=== PATIENT | male | born 1970 | race American Indian/Alaskan Native ===

== ENCOUNTER 2022-07-19 09:56 | Inpatient (IN) | payer OTHER ==
[~2022-07-19] VITALS: Ht 185.4 cm; Wt 86.0 kg
[~2022-07-19 09:56] MED LIST: ASPIRIN EC81 MG PO; JANUVIA100 MG PO; LIPITOR40 MG PO; NORCO 5-325 TA1 EACH PO; NOVOLOG FL100 UNIT/1 SUB-Q; SEMGLEE (Y100 UNIT/2 SUB-Q
[2022-07-19] MEDS ORDERED: OZEMPIC1 MG/0.71 SUB-Q (10:26)
--- NOTE | 2022-07-19 13:55 | NUR ---
REPORT RECIEVED FROM CURVE CLEANER, CARE OF PT ASSUMED AT THIS TIME. PT ARRIVED VIA STRETCHER ON REFRACTORY REPAIRER. TRANSPORTED BY [employer] DEVELOPER. PT ALERT AND ORIENTED UPON ARRIVAL. ABLE TO SELF TRANSFER FROM STRETCHER TO BED.
--- NOTE | 2022-07-19 14:20 | NUR ---
INITIAL ASSESSMENT COMPLETE. PT ALERT AND ORIENTED, ANSWERING ALL QUESTIONS APPROPRIATELY. LUNGS SOUND CLEAR IN THE UPPER IARWAYS, DIMINISHED IN BILATERAL LUNG BASES. PT DENIES SHORTNESS OF BREATH. SPO2 = 95% ON ROOM AIR. PT IN AFIB WITH RVR, HEART RATE BETWEEN 110-130 BPM AT REST. PT HAS BILATERAL LOWER LEG EDEMA. PT STATES HE NOTICED THE SWELLING DEVELOPING IN THE LAST TWO WEEKS. PULSE STRONG IN A DISTAL EXTREMITIES. BOWEL TONES ACTIVE. PLAN OF CARE DISCUSSED WITH PT. ALL QUESTIONS ANSWERED. IV LASIX AND ORAL LOPRESSOR ADMINISTERED. IV MAGNESIUM NOW INFUSING. CALL LIGHT WITHIN REACH. WILL CONTINUE TO CLOSELY MONITOR.
--- NOTE | 2022-07-19 15:20 | EKG ---
[facility] [address] [place], [place] [address] Signed Atrial fibrillation with rapid ventricular response Nonspecific T wave abnormality Abnormal ECG No previous ECGs available Confirmed by NO ZHENG MD ([id number]) on 07/19/2022 3:20:52 PM Electronically Signed By: NO ZHENG MD 07/19/22 1520 PATIENT NAME: RICH WILSON Electrocardiogram DATE OF : 74 PHYSICIAN: NO ZHENG MD REPORT #: [id number] REPORT IS CONFIDENTIAL AND NOT TO BE RELEASED WITHOUT AUTHORIZATION
--- NOTE | 2022-07-19 15:28 | NUR ---
PT UP AT SIDE OF BED TO VOID. HEART RATE UP INTO THE 170S WITH MINIMAL ACTIVITY. DR ZHENG UPDATED. TELEPHONE ORDER FOR 5 MG IV LOPRESSOR RECEIVED. FIVE MINUTES AFTER ADMINISTRATION. HEART RATE BACK INTOT HE 120S. IN A ATRIAL FIBRILLATION RHYTHM. PT DENIES CHEST PAIN, SHORTNESS OF BREATH, OR DISCOMFORT. WILL CONTINUE TO MONITOR.
--- NOTE | 2022-07-19 17:22 | NUR ---
ASSESSMENT COMPLETED. INSULIN HELD FOR BLOOD SUGAR IN RANGE. PT NOW SITTING AT BEDSIDE TO VOID. HEART UP TO 160 WITH ACTIVITY. PT NOW EATING DINNER. HEART RATE STILL BETWEEN 140-160
--- NOTE | 2022-07-19 17:29 | NUR ---
DR ZHENG UPDATED ON PT'S HEART RATE WITH ACTIVITY. PLAN TO WATCH PT FOR THE NEXT 20 MINUTES.
--- NOTE | 2022-07-19 18:29 | NUR ---
PT RESTING HEART RATE IN THE 130S, ELEVATES TO THE 150S WITH MINOR ACTIVITY SUCH TALKING ON THE PHONE, EATING OR MOVING IN BED.
--- NOTE | 2022-07-19 19:37 | NUR ---
PT ASSESSMENT AND MEDICATION ADMINISTRATION COMPLETED. PT IS A/O, RESPIRATIONS EVEN AND REGULAR. RATES PAIN 0/10. MANUAL BP 112/72 HR IRREGULAR 135-154. PT DENIES NEEDS/COMPLAINTS ATT. CALL LIGHT WITHIN REACH.
--- NOTE | 2022-07-19 20:30 | NUR ---
MD NOTIFIED/UPDATED ON PT HR AND VS. VERBAL GIVEN TO CONTINUE TO MONITOR FOR ONE MORE HOUR AND UPDATE MD AT THAT TIME.
--- NOTE | 2022-07-19 21:05 | NUR ---
ROUNDED ON PT. PT IS A/O, SITTING UP IN BED, RESPIRATIONS EVEN AND REGULAR. INSULIN ADMINISTERED FOR BG 183. PT DENIES COMPLAINTS OR NEEDS ATT. CALL LIGHT WITHIN REACH.
--- NOTE | 2022-07-19 21:33 | NUR ---
UPDATED ON PT HR. VERBALIZED THAT HE WILL MAKE MEDICATION CHAGES.
--- NOTE | 2022-07-19 21:47 | NUR ---
TO PT ROOM FOR MEDICATION ADMINISTRATION. PT IS A/O, RESPIRATIONS EVEN AND REGULAR HR 140-150. CALL LIGHT WITHIN REACH.
--- NOTE | 2022-07-19 23:55 | NUR ---
PT ASSESSMENT COMPLETED. PT IS RESTING COMFORTABLY, HR 115-120. DENIES NEEDS OR COMPLAINTS ATT. URNINAL EMPTIED. CALL LIGHT WITHIN REACH.
--- NOTE | 2022-07-20 01:54 | NUR ---
TO PT ROOM FOR MEDICATION ADMINISTRATION. PT APPEARED TO BE SLEEPING COMFORTABLY. EASILY AROUSED FOR MEDIATION. HR 118-125, RESPIRATIONS EVEN AND REGULAR. CALL LIGHT WITHIN REACH.
--- NOTE | 2022-07-20 04:13 | NUR ---
pt assessment completed. pt appears to be sleeping comfortably. HR 99-107, respirations even and regular. call light within reach.
--- NOTE | 2022-07-20 06:02 | NUR ---
rounded on pt. pt appears to be sleeping comfortably. hr 112-117, respirations even and regular. call light within reach.
--- NOTE | 2022-07-20 07:35 | NUR ---
REPORT RECEIVED FROM KINDRA CAT. AR IS RESTING IN BED WITH EYES CLOSED, RESP EVEN AND UNLABORED, HR 110-120'S.
--- NOTE | 2022-07-20 08:39 | NUR ---
PT HAS EATEN ALL HIS BREAKFAST, SITITNG UP IN BED WATCHING TV. ADDITIONAL 25MG METOPROLOL GIVEN TO MAKE A TOTAL OF 100MG GIVEN THIS AM. PT STATES HE IS FEELING MUCH BETTER THAN WHEN HE FIRST CAME IN, REPORTING LESS WHEEZING AND NO LONGER FEELING SOB, REPORTS HE GOT SOME GOOD SLEEP LAST NIGHT AND HAD OCCASIONAL TIMES WHERE HE FELT SOME CHEST PRESSURE, STATES "ITS NOT NEAR MUCH PRESSURE I WAS FEELING YESTERDAY". PLAN FOR THE DAY DISCUSSED, INCLUDING TO CONTINUE CARDIAC MONITORING AND SCHEDULED METOPROLOL AND PT IS AGREEABLE.
--- NOTE | 2022-07-20 08:40 | NUR ---
PATIENT RESTING IN BED, WOKE TO VOICE. VITALS CHARTED. WASHCLOTH PROVIDED FOR FACE AND HANDS. BREAKFAST PROVIDED. HR IN 150'S WITH SMALL ACTIVITY OF REPOSITIONING IN BED FOR BREAKFAST. RN NOTIFIED. CALL LIGHT IN EASY REACH
--- NOTE | 2022-07-20 10:07 | NUR ---
DR ZHENG IN TO SEE PT, PLAN TO START DIGOXIN AND GIVE MORE LASIX.
[2022-07-20] MEDS ORDERED: CIALIS20 MG PO (10:35)
[2022-07-20] MEDS ORDERED: SILDENAFIL20 MG PO (10:36)
[2022-07-20] MEDS ORDERED: NORVASC10 MG PO (10:38)
[2022-07-20] MEDS ORDERED: FISH OIL 1,0001 EAC9 PO (10:38)
[2022-07-20] MEDS ORDERED: ZESTRIL40 MG PO (10:39)
[2022-07-20] MEDS ORDERED: VITAMIN D350 MCG PO (10:40)
[2022-07-20] MEDS ORDERED: WELCHOL625 MG PO (10:41)
[2022-07-20] MEDS ORDERED: METFORMIN HCL500 M3 PO (10:42)
--- NOTE | 2022-07-20 11:34 | NUR ---
VITALS CHARTED. EMORY LEE NOTIFIED OF 99.0 TEMP.
--- NOTE | 2022-07-20 11:45 | NUR ---
LUNCH BROUGHT IN TO PT, ASSESSMENT UNCHANGED FROM PREVIOUS. PT DENIES NEEDS AT THIS TIME, HR A BIT LOWER, 100-120.
--- NOTE | 2022-07-20 12:06 | NUR ---
MED REC COMPLETE
--- NOTE | 2022-07-20 14:00 | NUR ---
PT RESTING IN BED WITH EYES CLOSED, RESP EVEN AND UNLABORED. HR 115'S.
--- NOTE | 2022-07-20 17:12 | NUR ---
DINNER BROUGHT IN TO PT, PT SITTING UP IN BED WATCHING TV WITH RESTING HR 115-120'S. DENIES CHEST PAIN OR PRESSURE.
--- NOTE | 2022-07-20 18:04 | NUR ---
PT STANDING UP AT BEDSIDE TO VOID, HR 150-170 WHILE STANDING. DOWN TO 115'S ONCE HE LAYS BACK DOWN TO WATCH TV. DENIES NEEDS AT THIS TIME.
--- NOTE | 2022-07-20 19:36 | NUR ---
PT ASSESSMENT COMPLETED. PT HR 110-120. DENIES SOB OR CP THIS EVENING. BLE +1 WITH GOOD URINE OUTPUT TODAY. RATES PAIN 0/10. PT IS A/O, RESPIRATIONS EVEN AND REGULAR. CALL LIGHT WITHIN REACH.
--- NOTE | 2022-07-20 21:05 | NUR ---
TO PT ROOM FOR MEDICATION ADMINISTRATION. PT UP TO USE URINAL. DENIES DIZZINESS/SOB WITH AMBULATION. HR ELEVATED TO 170-190 WHILE OOB. DENIES NEEDS/COMPLAINTS ATT. CALL LIGHT WITHIN REACH.
--- NOTE | 2022-07-20 23:30 | NUR ---
rounded on pt. pt appears to be sleeping comfortably. respirations even and regular hr 110-120.
--- NOTE | 2022-07-21 00:06 | NUR ---
PT ASSESSMENT COMPLETED. PT SLEEPING COMFORTABLY. EASILY AROUSED, RESPIRATIONS EVEN AND REGULAR. HR 90-100. CALL LIGHT WITHIN REACH.
--- NOTE | 2022-07-21 02:10 | NUR ---
rounded on pt. pt appears to be sleeping comfortably. respirations even and regular. call light within reach.
--- NOTE | 2022-07-21 04:21 | NUR ---
PT ASSESSMENT COMPLETED. PT SLEEPING COMFORTABLY, EASILY AROUSED. HR 90-110. CALL LIGHT WITHIN REACH.
--- NOTE | 2022-07-21 06:02 | NUR ---
ROUNDED ON PT. PT HAD X1 INCONTINENCE LOOSE STOOL. WHEN OOB HR 170'S. PT DENIES CP, DIZZINES, OR SOB WITH EXERTION. AMBULATES WELL. CALL LIGHT WITHIN REACH.
--- NOTE | 2022-07-21 07:30 | NUR ---
REPORT RECEIVED FROM KINDRA CAT. PT HAS JUST GOTTEN UP TO BR WITH DRY CELL BATTERY ASSEMBLER RN-HR UP TO 170'S WHILE UP.
--- NOTE | 2022-07-21 08:04 | NUR ---
BREAKFAST BROUGHT IN TO PT, BLOOD SUGAR 170 1 UNIT OF INSULIN GIVEN. HR WHILE PT IS SITTING UP EATING BREAKFAST IS 130'S AFIB.
--- NOTE | 2022-07-21 08:43 | NUR ---
IN TO SEE PT.
--- NOTE | 2022-07-21 09:20 | NUR ---
PT UP TO BATHROOM, C/O HAVING LOOSE BOWEL MOVEMENTS. HR UP TO 180'S WHILE UP. DENIES FEELING ANY CHEST PAIN/PRESSURE WITH HR UP THIS HIGH. WANTS TO STAND AT EDGE OF BED FOR A WHILE AFTERWARDS WITH HR IN 160'S.
--- NOTE | 2022-07-21 10:41 | NUR ---
PT SITTING IN BED WATCHING TV, HR 100-110.
--- NOTE | 2022-07-21 14:14 | NUR ---
PT HAS VISITORS IN TO SEE HIM.
--- NOTE | 2022-07-21 17:00 | NUR ---
DINNER BROUGHT IN TO PT, PT VISITORS ARE LEAVING NOW, PT WATCHING TV IN BED. RESTING HR 110-115, STILL GETS UP TO 170 WHEN UP TO VOID.
--- NOTE | 2022-07-21 19:36 | NUR ---
PT ASSESSMENT COMPLETED. PT IS A/O, RESPIRATIONS EVEN AND REGULAR. DENIES CP, SOB, OR DIZZINESS. DENIES FEELING SYMPTOMATIC WITH AMBULATION DURING THE DAY. RESTING HEART RATE 90-120'S. PT HAS HAD GOOD URINE OUTPUT. NO EDEMA NOTED. LUNGS CLEAR IN UPPER LOBES, DIM IN LOWER. PT DENIES PAIN ATT. CALL LIGHT WITHIN REACH.
--- NOTE | 2022-07-21 20:59 | NUR ---
TO PT ROOM FOR MEDICATION ADMINISTRATION. PT SITTING UP IN BED. A/O, RESTING HR 120. DENIES COMPLAINTS OR NEEDS ATT.
--- NOTE | 2022-07-21 22:11 | NUR ---
ROUNDED ON PT. PT APPEARS TO BE SLEEPING COMFORTABLY. RESPIRATIONS EVEN AND REGULAR. CALL LIGHT WITHIN REACH.
--- NOTE | 2022-07-22 00:16 | NUR ---
ROUNDED ON PT. PT APPEARS TO BE SLEEPING COMFORTABLY. HR 90-110. CALL LIGHT WITHIN REACH.
--- NOTE | 2022-07-22 02:07 | NUR ---
ROUNDED ON PT. PT APPEARS TO BE SLEEPING COMFORTABLY. RESTING HR 90-100. CALL LIGHT WITHIN REACH.
--- NOTE | 2022-07-22 04:00 | NUR ---
TO PT ROOM TO ROUND ON PT. PT APPEARS TO BE SLEEPING COMFORTABLY. RESPIRATIONS EVEN AND REGULAR. CALL LIGHT WITHIN REACH.
--- NOTE | 2022-07-22 06:06 | NUR ---
ROUNDED ON PT. PT APPEARS TO BE SLEEPING COMFORTABLY IN BED. RESTING HR 110-117. RESPIRATIONS EVEN AND REGULAR. CALL LIGHT WITHIN REACH.
--- NOTE | 2022-07-22 07:30 | NUR ---
REPORT RECEIVED FROM KINDRA CAT. PT RESTING IN BED WITH EYES CLOSED, RESP EVEN AND UNLABORED. HR 120-130'S.
--- NOTE | 2022-07-22 08:30 | NUR ---
UPDATED MD ON PTS [id number] RESTING AND UP TO 180'S WITH MOVEMENT IN BED. PT DUE NOW FOR SCHEDULED METOPROLOL AND DIGOXIN WILL GIVE. MD PLANS TO CONSULT CARDIOLOGY TODAY TO DETERMINE FURTHER PLAN OF CARE.
--- NOTE | 2022-07-22 08:48 | NUR ---
EKG DONE, SHOWED TO MD BY SANDFILL OPERATOR SURFACE.
--- NOTE | 2022-07-22 10:46 | NUR ---
PT RESTING IN BED WATCHING TV, HR 90-110'S.
--- NOTE | 2022-07-22 11:44 | NUR ---
LUNCH BROUGHT IN TO PT, PT HAS VISITOR IN ROOM, DENIES NEEDS.
--- NOTE | 2022-07-22 14:18 | NUR ---
UPDATE TO DR SCHOFIELD, PLAN TO TRANSFER PT D/T NO ECHOCARDIOGRAM HERE AND NEED FOR EXHIBIT BUILDER. PT AWARE AND AGREEABLE TO THIS PLAN.
--- NOTE | 2022-07-22 17:06 | NUR ---
DINNER BROUGHT IN TO PT, HR NOW UP TO 120'S RESTING, UP TO 150'S WITH MOVMENT IN BED.
--- NOTE | 2022-07-22 17:40 | NUR ---
HR UP TO 190'S WHILE UP USING THE URINAL.
--- NOTE | 2022-07-22 18:20 | NUR ---
CALL TO MD TO DISCUSS HR BACK UP, HIGH 200 WITH ACTIVITY. WILL GIVE SCHEDULED METOPROLOL NOW.
--- NOTE | 2022-07-22 19:54 | NUR ---
REPORT RECEIVED FROM DAY RN. THIS RN IN ROOM TO INTRODUCE SELF. PT RESTING IN BED WATCHING TV AND EATING CHEESE AND CRACKER SNACK. PT DENIES PAIN, SOB. STATES HES "FINE". ICE WATER PROVIDED, URINAL EMPTIED. ROUNDING WITH RN AND POC TO PURSUE TRANSFER IN AM WITH TRIOS ABLE. VERBAL LANTUS 10 UNITS ONCE TONIGHT RECEIVED AND ENTERED. PT HAS CALL LIGHT AT SIDE.
--- NOTE | 2022-07-22 20:48 | NUR ---
RN IN ROOM TO ADMINISTER SCHEDULED MEDICATIONS. CBG 255, 5 UNITS HUMALOG FOR COVERAGE WITH 10 UNITS SEMGLEE. PT DENIES FURTHER NEEDS, LIGHTS TURNED OFF FOR SLEEP, CALL LIGHT AT SIDE.
--- NOTE | 2022-07-22 21:33 | EKG ---
[facility] [address] [place] [address] Signed Atrial fibrillation with rapid ventricular response ST \T\ T wave abnormality, consider inferolateral ischemia Abnormal ECG When compared with ECG of 19-JUL-2022 09:56, No significant change was found Confirmed by Vic Schofield MD () on 07/22/2022 9:33:34 PM Electronically Signed By: VIC SCHOFIELD MD 07/22/22 2133 PATIENT NAME: RICH WILSON Electrocardiogram DATE OF : 74 PHYSICIAN: VIC SCHOFIELD MD REPORT #: [id number] REPORT IS CONFIDENTIAL AND NOT TO BE RELEASED WITHOUT AUTHORIZATION
--- NOTE | 2022-07-22 22:02 | NUR ---
RN ROUNDING ON PT - PT RESTING ASLEEP IN BED ON BACK, HR 102 CURRENTLY. CALL LIGHT AT SIDE.
--- NOTE | 2022-07-22 23:42 | NUR ---
RN ROUNDING ON PT - PT RESTING ASLEEP IN BED ON BACK. CALL LIGHT AT SIDE. UPDATED BY OTHER RN ON RESTING HR IN LOW 100'S.
--- NOTE | 2022-07-23 02:00 | NUR ---
RN ROUNDING ON PT - PT REMAINS ASLEEP. RESTING HR HIGH 90'S. CALL LIGHT AT SIDE.
--- NOTE | 2022-07-23 03:15 | NUR ---
RN ROUNDING ON PT - PT ASLEEP IN BED ON BACK, RR EVEN AND UNLABORED. HR CURRENTLY 97 ON MONITOR. CALL LIGHT AT SIDE.
--- NOTE | 2022-07-23 05:00 | NUR ---
RN IN ROOM TO ASSESS PT - PT DENIES COMPLAINTS. ASSESSMENT UNCHANGED. URINAL EMPTIED OF 1000 ML. ICE WATER REFILLED. LAB IN ROOM TO DRAW AM LABS.
--- NOTE | 2022-07-23 07:39 | NUR ---
REPORT RECEIVED FROM JULIO CAT. PT RESTING IN BED AWAKE. HR 100-120'S AFIB.
--- NOTE | 2022-07-23 08:20 | NUR ---
MD IN TO SEE PT, RESTING HR 130-140'S.
--- NOTE | 2022-07-23 08:20 | NUR ---
VITALS CHARTED. PATIENT AWAKE AND HAS A VISITOR.
--- NOTE | 2022-07-23 08:55 | NUR ---
PT STOOD UP AT BEDSIDE TO USE URINAL, HR UP TO 180'S, DENIES ANY CARDIAC SX.
--- NOTE | 2022-07-23 11:08 | NUR ---
PT RESTING IN BED WATCHING TV, HAS BEEN GIVEN ADDITIONAL DOSE OF IV DIGOXIN AND RESTING HR IS 100-115. DENIES PAIN/SOB OR OTHER NEEDS AT THIS TIME. USING IS INSTRUCTED PERIODICALLY.
--- NOTE | 2022-07-23 11:43 | NUR ---
Report from Gerald Pierson RN. Patient sitting up in bed, watching TV. HR in low 100's at this time. Insulin given as prescribed. Allowed to eat. Call light in reach. Bed rails up X2
--- NOTE | 2022-07-23 12:24 | NUR ---
Sitting up in bed. Finished with lunch. Heartrate currently in the high 90's. Respirations even and unlabored. Assessment completed. Denies needs at this time. Call light in reach.
--- NOTE | 2022-07-23 13:58 | NUR ---
Resting in bed, eyes closed, respirations even and unlabored. Heartrate high 90's to low 100's. Call light in reach, bed rails up X2. Allowed to rest.
--- NOTE | 2022-07-23 14:41 | NUR ---
PATIENT UP TO BR FOR VOID AND BM. PATIENT STATES HE HAD FORMED VERY DARK BM. HR REMAINED BETWEEN 120 AND 140 WITH THIS ACTIVITY. PATIENT TOLERATED ACTIVITY WELL. LINEN CHANGED. FRESH GOWN AND WASHCLOTHS PROVIDED FOR PATIENT WHILE IN BR. PATIENT BACK TO BED, CALL LIGHT IN REACH. FRESH ICE WATER PROVIDED
--- NOTE | 2022-07-23 14:56 | NUR ---
Resting in bed.No change in Discharge plan to go home when heart rate is well controlled.
--- NOTE | 2022-07-23 16:53 | NUR ---
Standing at bedside to use urinal. Heartrate elevated to 130's up to 156 during standing void at bedside. Assessment completed. Call light in reach. Vitals obtained.
--- NOTE | 2022-07-23 17:31 | NUR ---
Sitting in bed, eating supper. Heartrate up to 207, then immediately returns to 140's, now between [address] Espinosa notified. No new orders at this time.
--- NOTE | 2022-07-23 19:52 | NUR ---
REPORT RECEIVED FROM DAY RN - PT RESTING IN BED WITH HOB ELEVATED SLIGHTLY, RR EVEN AND UNLABORED, HR 109. CALL LIGHT AT SIDE.
--- NOTE | 2022-07-23 20:30 | NUR ---
RN IN ROOM TO ASSESS PT AND ADMINISTER SCHEDULED MEDICATIONS. 5 UNITS HUMALOG ADMINISTERED FOR CBG OF 274. HR HIGH 90'S WHILE RESTING IN BED WATCHING TV. IV SITE PATENT WNL FLUSHES WITHOUT DIFFICULTY. CALL LIGHT AT SIDE, PT DENIES NEEDS. PT ABLE TO VERBALIZE UNDERSTANDING OF CURRENT POC, DENIES QUESTIONS.
--- NOTE | 2022-07-23 21:46 | NUR ---
RN IN ROOM TO ADMINISTER INSULIN PER NEW ORDER. PT STOOD AT BEDSIDE TO USE URINAL WITH MAX HR REACHING 130'S. PT DENIES ANY CHANGES IN SYMPTOMS. CALL LIGHT AT SIDE, DENIES FURTHER NEEDS.
--- NOTE | 2022-07-23 23:11 | NUR ---
RN ROUNDING ON PT - RESTING IN BED ASLEEP, RR EVEN AND UNLBORED, HR 90. CALL LIGHT AT SIDE.
--- NOTE | 2022-07-24 | NUR ---
RN ROUNDING ON PT - RESTING IN BED ASLEEP, HR 90. CALL LIGHT AT SIDE.
--- NOTE | 2022-07-24 02:00 | NUR ---
RN ROUNDING ON PT - REMAINS ASLEEP IN BED, VS STABLE AND WNL AT RN STATION. URINAL AT BEDSIDE REMAINS EMPTY. CALL LIGHT AT SIDE.
--- NOTE | 2022-07-24 06:08 | NUR ---
RN IN ROOM TO EMPTY URINAL. PT REMAINS ASLEEP. HR REMAINS CONTROLLED THROUGHOUT NIGHT EVEN WHILE STANDING AT BEDSIDE TO USE URINAL.
--- NOTE | 2022-07-24 07:30 | NUR ---
REPORT RECIEVED, CARE OF PT ASSUMED AT THIS TIME.
--- NOTE | 2022-07-24 07:45 | NUR ---
Spoke with Xiang. He denies needs. Cont. with medication adjustments to control afib. He states he sees Dr. Tran at [facility] and uses the pharmacy there. He plans on dc to when cleared medically. He denies he will need any DME.
--- NOTE | 2022-07-24 07:49 | NUR ---
PATIENT AWAKE, VITALS CHARTED. FACE AND HANDS WASHED. FRESH ICE WATER PROVIDED.
--- NOTE | 2022-07-24 08:23 | NUR ---
DISCUSSED PLAN OF CARE WITH DR SCHOFIELD. PT REMAINS ON [facility] WAIT LIST FOR TRANSFER. LONG ACTING INSULIN INCREASED TO 15 UNITS BID (SEE EMAR).
--- NOTE | 2022-07-24 08:57 | NUR ---
MEDICATION ADMINISTRATION AND ASSESSMENT COMPLETED. PT STANDING AT BEDSIDE TO STRETCH LEGS. HEART RATE IN THE 160S. PT DENIES DIZZINESS OR SHORTNESS OF BREATH. EDEMA IN LOWER LEGS MINIMAL. LUNGS SOUND CLEAR. SPO2 = 100% ON ROOM AIR. BOWEL TONES ACTIVE. PLAN OF CARE FOR DAY ESTABLISHED. CALL LIGHT WITHIN REACH. WILL CONTINUE TO MONITOR.
--- NOTE | 2022-07-24 10:32 | NUR ---
PT AWAKE WATCHING TELEVSION IN BED. HEART RATE 100. BLOOD PRESSURE 106/85 (93). PLAN ESTABLISHED TO HAVE PT TAKE SHOWER LATER IN DAY. CALL LIGHT WITHIN REACH. WILL CONTINUE TO MONITOR.
--- NOTE | 2022-07-24 12:00 | NUR ---
ASSESSMENT COMPLETED. INSULIN GIVEN PER SLIDING SCALE (SEE EMAR). PT NOW EATING LUNCH. HEART RATE 100-115 WITH EATING. CALL LIGHT WITHIN REACH. WILL CONTINUE TO MONITOR.
--- NOTE | 2022-07-24 14:15 | NUR ---
REPORT UPDATE RECIEVED FROM Phoenix JONES RN. PATIENT IS SITTING IN BED WATCHING TV. IS W/O C/O. PATIENT KNOWS I WILL BE TAKING OVER NURSING CARE THIS AFTERNOON.
--- NOTE | 2022-07-24 14:18 | NUR ---
PT ALERT, ORIENTED AND SITTING IN CHAIR WATCHING TV. PT STATED HE FEELS BETTER, HOWEVER HE SAYS THE MONITOR SAYS SOMETHING DIFFERENT. PT SEEMS INFORMED, GAVE BLESSING AND G.POST. WILL FOLLOW
--- NOTE | 2022-07-24 14:41 | NUR ---
PATIENT UP TO SHOWER AT THIS TIME, VERBALLY UNDERSTANDS HOW TO CALL IF ASSISTANCE IS NEEDED. LINEN CHANGED.
--- NOTE | 2022-07-24 16:00 | NUR ---
ASSESSMENT UNCHANGED. PATIENT DENIES PAIN, DENIES SHORTNESS OF BREATH. RESTFUL.
--- NOTE | 2022-07-24 17:00 | NUR ---
UP TO BR TO VOID, HR TO 135. DR. SCHOFIELD AWARE. PLAN TO START CARIZEM GTT WHEN ORDERED. PATIENT THEN TO CHAIR FOR DINNER.
--- NOTE | 2022-07-24 18:15 | NUR ---
CARDIZEM BOLUS 20 MG IV GIVEN, FOLLOWED BY CARDIZEM GTT HUNG AT 5 M/HR.
--- NOTE | 2022-07-24 19:15 | NUR ---
CARDIZEM GTT REMAINS AT 5 MG/HR . REPORT TO NEXT SHIFT.
--- NOTE | 2022-07-24 20:00 | NUR ---
SHIFT REPORT RECEIVED. PATIENT RESTING IN BED WATCHING TV. DENIES NEEDS.
--- NOTE | 2022-07-24 22:00 | NUR ---
PATIENT APPEARED TO BE SLEEPING. WOKE EASILY WHEN RN ENTERED THE ROOM. SCHEDULED MEDS AND ACCU CHECK DONE. SSI PER ORDER. PATIENT DENIED ANY CONCERNS. VS STABLE. CARDIZEM DRIP AT 5 MG/HR. HR 90-110; A FIB. PATIENT DENIED PAIN OR GI UPSET. LUNG SOUNDS ARE CLEAR; ROOM AIR. ALLOWED PATIENT TO REST. CALL LIGHT IN REACH.
--- NOTE | 2022-07-25 00:30 | NUR ---
PATIENT APPEARS TO BE SLEEPING SOUNDLY. VS STABLE. CARDIZEM CONTINUES AT 5 MG/HR. HR 90-110, A FIB
--- NOTE | 2022-07-25 04:20 | NUR ---
PATIENT HR UP TO 160; THEN BACK DOWN TO 120'S. WITH OCCATIONAL INCREASE TO 140'S. A FIB. PATIENT IN BED. DENIES ANY MOVEMENT OR EXITING BED.
--- NOTE | 2022-07-25 05:00 | NUR ---
PATIENT STOOD AT BEDSIDE TO USE THE URNAL. PATIENT HR UP TO 180-190'S. HIGHEST WAS 200 BREIFLY. PATIENT DENIED SYMPTOMS. HR REGULATED WHEN PATIENT BACK IN BED. LEFT CARDIZEM AT 7.5 MG/HR
--- NOTE | 2022-07-25 06:35 | NUR ---
PATIENT RESTING HR 120'S. TITRATED TO 10 MG/HR ON CARDIZEM.
--- NOTE | 2022-07-25 07:25 | NUR ---
REPORT RECEIVED, CARE OF PT ASSUMED AT THIS TIME.
--- NOTE | 2022-07-25 08:00 | NUR ---
ASSESSMENT COMPLETED. PT REPORTS PAIN IN RIGHT AC IV. DC'D AND NEW IV INTITATED IN RIGHT FOREARM. HEART RATE IN THE 130S AT REST. DILTIASEM TITRATED UP TO 15 MG/HR (SEE FLOWSHEET). PT REMAINS ASYMPTOMATIC. DENIES SHORTENSS OF BREATH, DYSPNEA, CHEST PAIN OR DISCOMFORT. PLAN OF CARE FOR DAY ESTABLISHED. LONG ACTING AND SLIDING SCALE INSULIN GIVEN PER PROTOCOL (SEE EMAR). CALL LIGHT WITHIN REACH. WILL CONTINUE TO MONITOR.
--- NOTE | 2022-07-25 09:00 | NUR ---
ECHO COMPLETED. PT NOW RESTING WITH EYES CLOSED. DILTAZEM DRIP CONTINUES TO INFUSE. CALL LIGHT WITHIN REACH. WILL CONTINUE TO MONITOR.
--- NOTE | 2022-07-25 09:30 | NUR ---
Pt discussed in [address] Espinosa. Will remain in CCU and may need possible transfer to high level of care.
--- NOTE | 2022-07-25 10:30 | NUR ---
DISCUSSED PT'S CURRENT VITAL SIGNS AND CARDIZEM DRIP RATE WITH DR SCHOFIELD. NO CHANGES NEEDED AT THIS TIME.
--- NOTE | 2022-07-25 12:15 | NUR ---
ASSESSMENT COMPLETED. PT STANDING AT BEDSIDE. HEART RATE IN THE 90S WITH ACTIVITY. CARDIZEM DRIP TITRATED DOWN TO 12.5 MG/HR AT THIS TIME. PT DENIES PAIN, SHORTNESS OF BREATH OR DISCOMFORT. LUNGS ARE CLEAR THROUGHOUT. PLAN ESTABLISHED TO ASSIST PT WITH SHOWER IN THE EVENING. INSULIN GIVEN PER SLIDING SCALE (SEE EMAR). CALL LIGHT WITHIN REACH. WILL CONTINUE TO MONITOR.
--- NOTE | 2022-07-25 13:58 | NUR ---
PT SITTING UP IN BED, WATCHING A VIDEO ON HIS PHONE. PT SAID HE IS FEELING BETTER TODAY. THANKED ME FOR CHECKING. GAVE BLESSING, WILL FOLLOW
--- NOTE | 2022-07-25 14:22 | NUR ---
PT ASLEEP IN BED. HEART RATE 92 BOM AT REST. RESPIRATIONS EVEN AND UNLABORED. CARDIZEM DRIP CONTINUES TO INFUSE AT 10 MG/HR. CALL LIGHT WITHIN REACH. WILL CONTINUE TO CLOSELY MONITOR.
--- NOTE | 2022-07-25 16:00 | NUR ---
STANDING AT BEDSIDE. ASSESSMENT DONE. DENIES SHORTNESS OF BREATH OR PAIN. STATES EVERYTHING IS FINE. CARDIZEM GTT INFUSING AT 10 MG/HR. HR 95-110. REMAINS IN AFIB. LASIX 40 MG IV GIVEN.
--- NOTE | 2022-07-25 17:21 | NUR ---
PT GIVEN PRN MORPHINE FOR SHORTNESS OF BREATH. PRECEDEX CONTINUES TO INFUSE.
--- NOTE | 2022-07-25 18:00 | NUR ---
TOOK DINNER WELL. IS W/O C/O. NO CHANGES.
--- NOTE | 2022-07-25 19:00 | NUR ---
REPORT TO NEXT SHIFT. REMAINS ON CARDIZEM GTT AT 10 MG/HR. SITTING UP IN BED WATCHING TV.
--- NOTE | 2022-07-25 19:45 | NUR ---
PT ASSESSMENT COMPLETED. PT IS A/O, RESPIRATIONS EVEN AND REGULAR. RESTING HR IN THE 90'S. CARDIZEM RUNNING AT 10MG/HR. IV SITE WNL. CALL LIGHT WITHIN REACH.
--- NOTE | 2022-07-25 20:10 | NUR ---
TO PT ROOM FOR MEDICATION ADMINISTRATION. NEW BAG DILTIAZEM HUNG. CHARGE NURSE VERIFIED IV SETTINGS. RESTING HR 90-100. CALL LIGHT WITHIN REACH.
--- NOTE | 2022-07-25 20:55 | NUR ---
TO PT ROOM FOR MEDICATION ADMINISTRATION. PT IS A/O, RESTING HR 95-103. IV DILTIAZEM RUNNING. CALL LIGHT WITHIN REACH.
--- NOTE | 2022-07-26 02:32 | NUR ---
ROUNDED ON PT. PT APPEARS TO BE SLEEPING COMFORTABLY. RESPIRATIONS EVEN AND REGULAR. HR CONSITENTLY ABOVE 100. DILTIAZEM TITRATED TO 15MG/HR. CALL LIGHT WITHIN REACH.
--- NOTE | 2022-07-26 04:30 | NUR ---
PT ASSESSMENT COMPLETED. PT A/O, RESPIRATIONS EVEN AND REGULAR. CALL LIGHT WITHIN REACH.
--- NOTE | 2022-07-26 07:30 | NUR ---
PATTIENT REPORT RECEIVED FROM AQUATIC PHYSIOTHERAPIST RN. PATIENT RESTING IN BED AT THIS TIME. PATIENT RESTING HR IS 110-130'S ON CARDIZEM GTT AT 20MLS/HR. PATIENT CALLS APPROPRIATELY. WILL CONTINUE TO CLOSELY MONITOR.
--- NOTE | 2022-07-26 07:59 | NUR ---
Patient resting comfortably in bed. Patient not in any distress. Patient reports 0/10 pain. Patient denies any BORJAS, abdominal pain, or any SOB. Patient has all personal supplies and call-light within reach. Patient still resting in bed and awaiting breakfast.
--- NOTE | 2022-07-26 08:00 | NUR ---
Update from RN and they cont. to attempt to find higher level of care to accept transfer.
--- NOTE | 2022-07-26 09:33 | NUR ---
PATIENT ASSESSMENT COMPLETED. PATIENT RESTING IN BED WATCHING TV. UPDATED ON PLAN OF CARE. PATIENT BREATH SOUNDS CLEAR. PATITCHENTE DENEIS SOB. PATIENTS RESTING HR REMAINS 110-130'S AT REST ON CURRENT MEDICATION REGIMEN. PATIENT ON DILTIAZEM GTT AT 20MLS/HR. PATIENT RESTING AT THIS TIME. SPOKE WITH MD CASTRO ABOUT PLAN OF CARE. PER MD WILL START THE TRANSFER PROCESS. MORTICIAN HELPER NOTIFIED OF PLAN. PATIENT UPDATED ON PLAN. NO OTHER QUESTIONS AT THIS TIME. WILL CONITUNE TO CLOSELY MONITOR.
--- NOTE | 2022-07-26 10:10 | NUR ---
Notified by Mirella CAT, they have found an accepting hospital. She has questions regarding [facility] as [place] coverage only. Called and spoke with Carmen at the [facility]. She forwarded my call to Karrie. Asked if they cover the cost to fly or if they would like us to sign Xiang up for [facility] as it is around $75 compared to $75,000. She states she will speak with her table games shift manager and call me back.
--- NOTE | 2022-07-26 10:20 | NUR ---
In and spoke with Xiang, he is aware he is transfering to higher level of care. Updated we are attempted to sign him up for [facility] and he is agreeable tob this. Awaiting return call from [facility] to see if they can cover the cost of [facility] membership.
--- NOTE | 2022-07-26 10:40 | NUR ---
Spoke with [facility] console manager Yolande, received a gift card and gave to Mirella CAT to sign pt up for [facility]. Called and spoke with Karrie, let her know we will cover the cost. She is awaiting her console manager and states she will let me know for future pts if there is a way for them to cover the cost of [facility] membership.
--- NOTE | 2022-07-26 11:00 | NUR ---
CARDIZEM GTT TURNED BACK DOWN TO 15MLS/HR D/T PATIENTS HR 80-100'S. PATIENT HR 120'S WITH ACTIVITY. WILL CONTINUE TO CLOSELY MONITOR.
[2022-07-26] MEDS ORDERED: DIGITEK125 MCG PO (11:11)
[2022-07-26] MEDS ORDERED: ELIQUIS5 MG PO (11:11)
[2022-07-26] MEDS ORDERED: METOPROLOL TAR100 MG PO (11:11)
[2022-07-26] MEDS ORDERED: FUROSEMIDE10 MG/1 M2 IV (11:12)
--- NOTE | 2022-07-26 11:30 | NUR ---
PATIENT ACCEPTED AT [facility]. CONFIRMED BED SPACE AND ACCEPTIONG MD. PATIENT UPDATED ON PLAN OF CARE. EGG CRATER WORKING ON SIGNING PATIENT UP FOR [facility]. PATIENT UPDATED ON PLAN OF CARE.
--- NOTE | 2022-07-26 12:51 | NUR ---
REPORT GIVEN TO [facility] CREW. PATIENT TRANSFERED TO [facility] AND BELONGINGS SENT WITH PATIENT. PATIENTS VITALS STABLE UPON DISCHARGE. PATIENT ON 15MLS/HR OF CARDIZEM GTT. ALL BELONGINGS SENT WITH PATIENT.
--- NOTE | 2022-07-26 12:52 | NUR ---
CALLED TO GIVE REPORT. RN WILL CALL THIS STAFF MEMBER BACK FOR REPORT.
--- NOTE | 2022-07-26 13:11 | NUR ---
REPORT GIVEN TO MIGUELANGEL. ALL QUESTIONS ANSWERED. UPDATED ON PLAN OF CARE AND PATIENTS STATUS WHEN HE LEFT HERE.
== END 2022-07-26 12:40 | disposition short-term general hospital (02) | DRG 291 ==
LOC: ED 09:56 → CCU 13:26
PROVIDERS: ADMIT Internal Medicine; ATTEND Internal Medicine
DX: I11.0 Hypertensive heart disease with heart failure (principal); I50.31 Acute diastolic (congestive) heart failure; I48.0 Paroxysmal atrial fibrillation; Z20.822 Contact with and (suspected) exposure to COVID-19; E78.00 Pure hypercholesterolemia, unspecified; R91.1 Solitary pulmonary nodule; E11.65 Type 2 diabetes mellitus with hyperglycemia; E83.42 Hypomagnesemia; Z79.4 Long term (current) use of insulin; Z79.01 Long term (current) use of anticoagulants; Z79.82 Long term (current) use of aspirin; Z79.899 Other long term (current) drug therapy
CPT/HCPCS: 36415; 71045; 71260; 80048; 80053; 80162; 83036; 83735; 83880; 84443; 84484; 85025; 85379; 87502; 93005; 93010; 93306; 99285-25; A9270; C9803; J1160; J1650; J1815; J1940; J3475; Q9967; U0003

== ENCOUNTER 2023-04-25 16:55 | Emergency (ER) | payer OTHER ==
[~2023-04-25] VITALS: Ht 185.4 cm; Wt 94.0 kg
--- OUTSIDE RECORDS SUMMARY | ~2023-04-25 | XMS | Continuity of Care Document ---
Demographics + + + | Address | [address] | | | [place] [address] | + + + | Preferred Language | Unknown | + + + | Marital Status | Never | + + + | Christianity Affiliation | Unknown | + + + | Race | or | + + + | Ethnic Group | Not or | + + + Author + + + | Author | [facility] | + + + | Organization | [facility] | + + + | Address | [address] | | | [place] [address] | + + + | Phone | | + + + Care Team Providers + + + + | Care Operational Test Mechanic Name | Role | Phone | + + + + Unavailable | Unavailable | + + + + Unavailable | Unavailable | + + + + Unavailable | Unavailable | + + + + Allergies No information. Encounters No information. Functional Status No information. Immunizations No information. Medications + + + + | date | description | facility | + + + + | 2022-07-26 00:00 | APIXABAN | [facility] | + + + + | 2022-07-26 00:00 | INSULIN ASPART | [facility] | + + + + | 2022-07-26 00:00 | Furosemide | [facility] | + + + + | 2022-07-26 00:00 | Metformin HCl | [facility] | + + + + | 2022-07-26 00:00 | LISINOPRIL | [facility] | + + + + | 2022-07-26 00:00 | AMLODIPINE BESYLATE | [facility] | + + + + | 2022-07-26 00:00 | Semaglutide | [facility] | + + + + | 2022-07-26 00:00 | Insulin Glargine-Yfgn | [facility] | + + + + | 2022-07-26 00:00 | DIGOXIN | [facility] | + + + + | 2022-07-26 00:00 | ASPIRIN | [facility] | + + + + | 2022-07-26 00:00 | SILDENAFIL CITRATE | [facility] | + + + + | 2022-07-26 00:00 | Cholecalciferol (Vitamin | [facility] | | | D3) | | + + + + | 2022-07-26 00:00 | METOPROLOL TARTRATE | [facility] | + + + + | 2022-07-26 00:00 | JOANNEANURAGHOA HCL | [facility] | + + + + Problems + + + + | date | description | facility | + + + + | 2022-07-28 13:29:38 | Unspecified atrial | [facility] | | | fibrillation | | + + + + | 2022-07-28 13:29:38 | Unspecified systolic | [facility] | | | (congestive) heart failure | | + + + + Procedures No information. Results/Labs +--------+--------+ +---------+--------+---------+ | test | date | facility | value | unit | notes | +--------+--------+ +---------+--------+---------+ + + | Result panel 1 | + + + + + +--------+ + + | | 2022-07-19 | [facility] | 10.8 | (missing) | (missing) | | (unavailable | 10:10 | [facility] | | | | + + + +--------+ + + + + | Result panel 2 | + + + + + + + + + | | 2022-07-19 | [facility] | NEGATIVE | (missing) | (missing) | | (unavailable | 10:37 | [facility] | | | | + + + + + + + + + | Result panel 3 | + + + + + + + + + | | 2022-07-19 | [facility] | NEGATIVE | (missing) | (missing) | | (unavailable | 10:37 | [facility] | | | | + + + + + + + + + | Result panel 4 | + + + + + + + + + | | 2022-07-19 | [facility] | NEGATIVE | (missing) | (missing) | | (unavailable | 10:37 | [facility] | | | | + + + + + + + + + | Result panel 5 | + + + + + + + + + | | 2022-07-19 | [facility] | NEGATIVE | (missing) | (missing) | | (unavailable | 10:37 | [facility] | | | | + + + + + + + + + | Result panel 6 | + + + + + +-----+ + + | | 2022-07-22 | [facility] | 0 | (missing) | (missing) | | (unavailable | 05:15 | [facility] | | | | + + + +-----+ + + + + | Result panel 7 | + + + + + +--------+ + + | | 2022-07-22 | [facility] | 13.6 | (missing) | (missing) | | (unavailable | 05:15 | [facility] | | | | + + + +--------+ + + + + | Result panel 8 | + + + + + +------+ + + | | 2022-07-22 | [facility] | 67 | (missing) | (missing) | | (unavailable | 05:15 | [facility] | | | | + + + +------+ + + + + | Result panel 9 | + + + + + +------+ + + | | 2022-07-22 | [facility] | 22 | (missing) | (missing) | | (unavailable | 05:15 | [facility] | | | | + + + +------+ + + + + | Result panel 10 | + + + + + +------+ + + | | 2022-07-22 | [facility] | 10 | (missing) | (missing) | | (unavailable | 05:15 | [facility] | | | | + + + +------+ + + + + | Result panel 11 | + + + + + +-----+ + + | | 2022-07-22 | [facility] | 1 | (missing) | (missing) | | (unavailable | 05:15 | [facility] | | | | + + + +-----+ + + + + | Result panel 12 | + + + + + +--------+ + + | | 2022-07-22 | [facility] | 0.68 | (missing) | (missing) | | (unavailable | 11:54 | [facility] | | | | + + + +--------+ + + + + | Result panel 13 | + + + + + +---------+ + + | | 2022-07-22 | [facility] | 1.007 | (missing) | (missing) | | (unavailable | 11:54 | [facility] | | | | + + + +---------+ + + + + | Result panel 14 | + + + + + +-------+ + + | | 2022-07-24 | [facility] | 0.8 | (missing) | (missing) | | (unavailable | 05:30 | [facility] | | | | + + + +-------+ + + + + | Result panel 15 | + + + + + +------+ + + | | 2022-07-24 | [facility] | // | (missing) | (missing) | | (unavailable | 05:30 | [facility] | | | | + + + +------+ + + + + | Result panel 16 | + + + + + +-------+ + + | | 2022-07-25 | [facility] | 6.9 | (missing) | (missing) | | (unavailable | 05:13 | [facility] | | | | + + + +-------+ + + + + | Result panel 17 | + + + + + +-------+ + + | | 2022-07-25 | [facility] | 3.2 | (missing) | (missing) | | (unavailable | 05:13 | [facility] | | | | + + + +-------+ + + + + | Result panel 18 | + + + + + +-------+ + + | | 2022-07-25 | [facility] | 3.7 | (missing) | (missing) | | (unavailable | 05:13 | [facility] | | | | + + + +-------+ + + + + | Result panel 19 | + + + + + +--------+ + + | | 2022-07-25 | [facility] | 0.86 | (missing) | (missing) | | (unavailable | 05:13 | [facility] | | | | + + + +--------+ + + + + | Result panel 20 | + + + + + +-------+ + + | | 2022-07-25 | [facility] | 0.7 | (missing) | (missing) | | (unavailable | 05:13 | [facility] | | | | + + + +-------+ + + + + | Result panel 21 | + + + + + +------+ + + | | 2022-07-25 | [facility] | 12 | (missing) | (missing) | | (unavailable | 05:13 | [facility] | | | | + + + +------+ + + + + | Result panel 22 | + + + + + +------+ + + | | 2022-07-25 | [facility] | 42 | (missing) | (missing) | | (unavailable | 05:13 | [facility] | | | | + + + +------+ + + + + | Result panel 23 | + + + + + +------+ + + | | 2022-07-25 | [facility] | 98 | (missing) | (missing) | | (unavailable | 05:13 | [facility] | | | | + + + +------+ + + + + | Result panel 24 | + + + + + +--------+ + + | | 2022-07-26 | [facility] | 10.7 | (missing) | (missing) | | (unavailable | 07:23 | [facility] | | | | + + + +--------+ + + + + | Result panel 25 | + + + + + +--------+ + + | | 2022-07-26 | [facility] | 4.79 | (missing) | (missing) | | (unavailable | 07:23 | [facility] | | | | + + + +--------+ + + + + | Result panel 26 | + + + + + +--------+ + + | | 2022-07-26 | [facility] | 12.8 | (missing) | (missing) | | (unavailable | 07:23 [facility] | | | | + + + +--------+ + + + + | Result panel 27 | + + + + + +--------+ + + | | 2022-07-26 | [facility] | 39.1 | (missing) | (missing) | | (unavailable | 07:23 | [facility] | | | | + + + +--------+ + + + + | Result panel 28 | + + + + + +--------+ + + | | 2022-07-26 | [facility] | 81.5 | (missing) | (missing) | | (unavailable | 07:23 | [facility] | | | | + + + +--------+ + + + + | Result panel 29 | + + + + + +--------+ + + | | 2022-07-26 | [facility] | 26.6 | (missing) | (missing) | | (unavailable | 07:23 [facility] | | | | + + + +--------+ + + + + | Result panel 30 | + + + + + +--------+ + + | | 2022-07-26 | [facility] | 32.6 | (missing) | (missing) | | (unavailable | 07:23 [facility] | | | | + + + +--------+ + + + + | Result panel 31 | + + + + + +--------+ + + | | 2022-07-26 | [facility] | 13.8 | (missing) | (missing) | | (unavailable | 07:23 [facility] | | | | + + + +--------+ + + + + | Result panel 32 | + + + + + +-------+ + + | | 2022-07-26 | [facility] | 179 | (missing) | (missing) | | (unavailable | 07:23 [facility] | | | | + + + +-------+ + + + + | Result panel 33 | + + + + + +--------+ + + | | 2022-07-26 | [facility] | 80.3 | (missing) | (missing) | | (unavailable | 07:23 [facility] | | | | + + + +--------+ + + + + | Result panel 34 | + + + + + +--------+ + + | | 2022-07-26 | [facility] | 12.6 | (missing) | (missing) | | (unavailable | 07:23 [facility] | | | | + + + +--------+ + + + + | Result panel 35 | + + + + + +-------+ + + | | 2022-07-26 | [facility] | 6.2 | (missing) | (missing) | | (unavailable | 07:23 [facility] | | | | + + + +-------+ + + + + | Result panel 36 | + + + + + +-------+ + + | | 2022-07-26 | [facility] | 0.4 | (missing) | (missing) | | (unavailable | 07:23 [facility] | | | | + + + +-------+ + + + + | Result panel 37 | + + + + + +-------+ + + | | 2022-07-26 | [facility] | 0.5 | (missing) | (missing) | | (unavailable | 07:23 [facility] | | | | + + + +-------+ + + + + | Result panel 38 | + + + + + +-------+---------+ + | | 2022-07-26 | [facility] | 274 | mg/dL | (missing) | | (unavailable | 07:23 | [facility] | | | | + + + +-------+---------+ + + + | Result panel 39 | + + + + + +------+---------+ + | | 2022-07-26 | [facility] | 35 | mg/dL | (missing) | | (unavailable | 07:23 | [facility] | | | | + + + +------+---------+ + + + | Result panel 40 | + + + + + +--------+---------+ + | | 2022-07-26 | [facility] | 1.03 | mg/dL | (missing) | | (unavailable | 07:23 [facility] | | | | + + + +--------+---------+ + + + | Result panel 41 | + + + + + +------+ + + | | 2022-07-26 | [facility] | 89 | (missing) | (missing) | | (unavailable | 07:23 [facility] | | | | + + + +------+ + + + + | Result panel 42 | + + + + + +---------+ + + | | 2022-07-26 | [facility] | 33.98 | (missing) | (missing) | | (unavailable | 07:23 [facility] | | | | + + + +---------+ + + + + | Result panel 43 | + + + + + +-------+ + + | | 2022-07-26 | [facility] | 135 | (missing) | (missing) | | (unavailable | 07:23 [facility] | | | | + + + +-------+ + + + + | Result panel 44 | + + + + + +-------+ + + | | 2022-07-26 | [facility] | 4.7 | (missing) | (missing) | | (unavailable | 07:23 [facility] | | | | + + + +-------+ + + + + | Result panel 45 | + + + + + +-------+ + + | | 2022-07-26 | [facility] | 101 | (missing) | (missing) | | (unavailable | 07:23 [facility] | | | | + + + +-------+ + + + + | Result panel 46 | + + + + + +------+ + + | | 2022-07-26 | [facility] | 25 | (missing) | (missing) | | (unavailable | 07:23 [facility] | | | | + + + +------+ + + + + | Result panel 47 | + + + + + +--------+ + + | | 2022-07-26 | [facility] | 13.7 | (missing) | (missing) | | (unavailable | 07:23 [facility] | | | | + + + +--------+ + + + + | Result panel 48 | + + + + + +-------+---------+ + | | 2022-07-26 | [facility] | 8.2 | mg/dL | (missing) | | (unavailable | 07:23 [facility] | | | | + + + +-------+---------+ + + + | Result panel 49 | + + + + + +-------+---------+ + | | 2022-07-26 | [facility] | 1.6 | mg/dL | (missing) | | (unavailable | 07:23 | [facility] | | | | + + + +-------+---------+ + + + | Result panel 50 | + + + + + +-------+ + + | | 2022-07-26 | [facility] | 285 | (missing) | (missing) | | (unavailable | 11:49 | [facility] | | | | + + + +-------+ + + Social History No information. Vital Signs + + + +---------+ | date | measurement | value | units | + + + +---------+ | 2022-07-26 00:00 | BMI | 25.0 | kg/m2 | + + + +---------+ | 2022-07-26 00:00 | BP_diastolic | 77 | mmHg | + + + +---------+ | 2022-07-26 00:00 | BP_systolic | 111 | mmHg | + + + +---------+ | 2022-07-26 00:00 | heart_rate | 82 | /min | + + + +---------+ | 2022-07-26 00:00 | height_metric | 185.42 | cm | + + + +---------+ | 2022-07-26 00:00 | height_standard | 73 | in | + + + +---------+ | 2022-07-26 00:00 | o2_saturation | 97 | % | + + + +---------+ | 2022-07-26 00:00 | respiration_rate | 22 | /min | + + + +---------+ | 2022-07-26 00:00 | temperature_metric | 37 | C | | | | | | + + + +---------+ | 2022-07-26 00:00 | | 98.6 | F | | | temperature_standar | | | | | d | | | + + + +---------+ | 2022-07-26 00:00 | weight_metric | 86 | kg | + + + +---------+ | 2022-07-26 00:00 | weight_standard | 189.6 | lb | + + + +---------+"
--- OUTSIDE RECORDS SUMMARY | ~2023-04-25 | XMS | Continuity of Care Document ---
Demographics + + + | Address | [address] | | | [place] [address] | + + + | Preferred Language | Unknown | + + + | Marital Status | Never | + + + | Orthodox Affiliation | Unknown | + + + | Race | or | + + + | Ethnic Group | Not or | + + + Author + + + | Author | [facility] | + + + | Organization | [facility] | + + + | Address | [address] | | | [place] [address] | + + + | Phone | | + + + Care Team Providers + + + + | Care Quenching Machine Operator Name | Role | Phone | + [...] + | 2022-07-26 00:00 | APIXABAN | [facility] | + + + + | 2022-07-26 00:00 | INSULIN ASPART | [facility] | + + + + | 2022-07-26 00:00 | Furosemide | [facility] | + + + + | 2022-07-26 00:00 | Metformin HCl | [facility] | + + + + | 2022-07-26 00:00 | LISINOPRIL | [facility] | + + + + | 2022-07-26 00:00 | AMLODIPINE BESYLATE | [facility] | + + + + | 2022-07-26 00:00 | Semaglutide | [facility] | + + + + | 2022-07-26 00:00 | Insulin Glargine-Yfgn | [facility] | + + + + | 2022-07-26 00:00 | DIGOXIN | [facility] | + + + + | 2022-07-26 00:00 | ASPIRIN | [facility] | + + + + | 2022-07-26 00:00 | SILDENAFIL CITRATE | [facility] | + + + + | 2022-07-26 00:00 | Cholecalciferol (Vitamin | [facility] | | | D3) | | + + + + | 2022-07-26 00:00 | METOPROLOL TARTRATE | [facility] | + + + + | 2022-07-26 00:00 | JOANNEANURAGHOA HCL | [facility] | + + + + Problems + [...]
[~2023-04-25 16:55] MED LIST changes: +CIALIS20 MG PO; +DIGITEK125 MCG PO; +ELIQUIS5 MG PO; +FISH OIL 1,0001 EAC9 PO; +FUROSEMIDE10 MG/1 M2 IV; +METFORMIN HCL500 M3 PO; +METOPROLOL TAR100 MG PO; +NORVASC10 MG PO; +OZEMPIC1 MG/0.71 SUB-Q; +SILDENAFIL20 MG PO; +VITAMIN D350 MCG PO; +WELCHOL625 MG PO; +ZESTRIL40 MG PO
[2023-04-25] MEDS ORDERED: LANTUS SOL100 UNIT/1 SUB-Q (17:15)
[2023-04-25 17:19] LABS: BASOPHILS 0.5 % (0-2); EOSINOPHILS 1.7 % (0-6); HEMATOCRIT 46.8 % (35.0-50.0); HEMOGLOBIN 15.4 g/dL (12.0-18.0); LYMPHOCYTES 29.1 % (24-44); MCH 28.4 (27-36); MCHC 32.8 g/dl (30-36); MCV 86.6 fl (81-99); MONOCYTES 7.6 % (0-12); NEUTROPHILS 61.1 % (39-80); PLATELET COUNT 141 K/uL (140-440); RBC 5.41 M/ul (4.3-5.7); RDW 14.1 (10.5-15.0)
[2023-04-25 17:29] LABS: INR 1.03 (0.80-1.30)
[2023-04-25 17:39] LABS: ALBUMIN 3.7 g/dL (3.4-5.0); ALBUMIN/GLOBULIN RATIO 1.06 (1.1-2.4); ANION GAP 13.2 (7-21); BILIRUBIN, TOTAL 0.6 ng/dL (0.2-1.0); BUN/CREATININE RATIO 28.23 (6.0-28.6); CALCIUM 9.1 mg/dL (8.5-10.1); CREATININE, SERUM 0.85 mg/dL (0.70-1.30); MAGNESIUM 2.3 mg/dL (1.8-2.4); POTASSIUM 4.2 mmol/L (3.5-5.1); PROTEIN, TOTAL 7.2 g/dL (6.4-8.2)
[2023-04-25 19:08] VITALS: BP 143/92
--- NOTE | 2023-04-26 12:30 | EKG ---
[facility] [address] [place] [address] Signed Normal sinus rhythm Normal ECG When compared with ECG of 25-APR-2023 16:56, (Unconfirmed) Sinus rhythm has replaced Atrial fibrillation Confirmed by TIAGO CHAU MD ([id number]) on 04/26/2023 12:30:29 PM Electronically Signed By: TIAGO CHAU 04/26/23 1230 PATIENT NAME: RICH WILSON Electrocardiogram DATE OF : 74 PHYSICIAN: TIAGO CHAU REPORT #: [id number] REPORT IS CONFIDENTIAL AND NOT TO BE RELEASED WITHOUT AUTHORIZATION
--- NOTE | 2023-04-26 12:30 | EKG ---
[facility] [address] [facility] [place] [address] Signed Atrial fibrillation Abnormal ECG When compared with ECG of 22-JUL-2022 09:41, Vent. rate has decreased BY 55 BPM T wave inversion no longer evident in Inferior leads T wave inversion no longer evident in Anterolateral leads Confirmed by TIAGO CHAU MD ([id number]) on 04/26/2023 12:30:16 PM Electronically Signed By: ITAGO CHAU 04/26/23 1230 PATIENT NAME: RICH WILSON Electrocardiogram DATE OF : 74 PHYSICIAN: TIAGO CHAU REPORT #: [id number] REPORT IS CONFIDENTIAL AND NOT TO BE RELEASED WITHOUT AUTHORIZATION
== END 2023-04-25 19:06 | disposition home or self-care (01) ==
LOC: ED 16:55
PROVIDERS: Family Medicine
DX: I48.91 Unspecified atrial fibrillation (principal); E11.9 Type 2 diabetes mellitus without complications; E78.00 Pure hypercholesterolemia, unspecified; I10 Essential (primary) hypertension; Z79.899 Other long term (current) drug therapy; Z79.4 Long term (current) use of insulin; Z79.82 Long term (current) use of aspirin
CPT/HCPCS: 36415; 80053; 83735; 84484; 85025; 85610; 92960; 93005; 93010; 99285-25